=== PATIENT | male | born 1990 | race American Indian/Alaskan Native ===

== ENCOUNTER 2016-12-23 16:54 | Emergency (ER) | payer SELFPAY ==
[2016-12-23 17:20] VITALS: BP 114/76
[2016-12-23 17:56] LABS: Bilirubin,Urine NEG (Negative); Blood,Urine NEG (Negative); Ketones,Urine NEG (Negative); Leukocyte Esterase,Urine TR (Negative); Mucus,Urine FEW /HPF; Nitrite,Urine NEG (Negative)
--- NOTE | 2016-12-23 21:10 | Emergency Department Report ---
ED Male HPI - General Chief complaint: Urogenital-Male Stated complaint: BURNING WITH URINATION Time Seen by Provider: 12/23/16 20:27 Source: patient Mode of arrival: Ambulatory Limitations: No Limitations - History of Present Illness Initial comments: penile itching and dysuria x 2 weeks tx 2 months ago by urgent care for uti symptoms persist , pt advises last contact 1 month ago however has had symptoms since last contact symptoms today include urinary urgency frequency and dysuria , pt denies penile discharge does endorse" It feels funny on the inside" MD Complaint: dysuria Onset/Timin -: month(s) Location: penis Radiation: none Severity scale (0 -10): 3 Quality: burning Consistency: intermittent Improves with: none Worsens with: urination dysuria. denies: discharge, swelling, mass, urinary retention, blood in urine, fever, nausea/vomiting, incontinence - Related Data Sexually active: Yes Previous Rx's Medication Instructions Recorded Last Taken Type Doxycycline [Vibramycin CAP] 100 mg PO Q12HR #20 capsule 12/23/16 Unknown Rx Allergies Allergy/AdvReac Type Severity Reaction Status Date / Time oranges Allergy Rash Uncoded 12/23/16 17:15 ED Review of Systems ROS: Stated complaint: BURNING WITH URINATION Other details as noted in HPI Constitutional: denies: chills, fever Eyes: denies: eye pain, eye discharge, vision change ENT: denies: ear pain, throat pain Respiratory: denies: cough, shortness of breath, wheezing Cardiovascular: denies: chest pain, palpitations Endocrine: no symptoms reported Gastrointestinal: denies: abdominal pain, nausea, diarrhea Genitourinary: urgency, dysuria, frequency. denies: hematuria, discharge, testicular pain, testicular mass Musculoskeletal: denies: back pain, joint swelling, arthralgia Skin: denies: rash, lesions Neurological: denies: headache, weakness, paresthesias Psychiatric: denies: anxiety, depression Hematological/Lymphatic: denies: easy bleeding, easy bruising ED Past Medical Hx - Past Medical History Previous Medical History?: No - Surgical History Additional Surgical History: 5th finger - Social History Smoking Status: Never Smoker Substance Use Type: None - Medications Home Medications: Home Medications Medication Instructions Recorded Confirmed Last Taken Type Doxycycline [Vibramycin CAP] 100 mg PO Q12HR #20 capsule 12/23/16 Unknown Rx ED Physical Exam - General Limitations: No Limitations General appearance: alert, in no apparent distress - Head Head exam: Present: atraumatic, normocephalic - Eye Eye exam: Present: normal appearance - ENT ENT exam: Present: mucous membranes moist - Neck Neck exam: Present: normal inspection - Respiratory Respiratory exam: Present: normal lung sounds bilaterally. Absent: respiratory distress - Cardiovascular Cardiovascular Exam: Present: regular rate, normal rhythm. Absent: systolic murmur, diastolic murmur, rubs, gallop - GI/Abdominal GI/Abdominal exam: Present: soft, normal bowel sounds - Rectal Rectal exam: Present: deferred - exam: Present: circumcision. Absent: testicular tenderness, urethral discharge, scrotal swelling, vertical testicular lie External exam: Absent: normal external exam - Extremities Exam Extremities exam: Present: normal inspection - Back Exam Back exam: Present: normal inspection - Neurological Exam Neurological exam: Present: alert, oriented X3 - Psychiatric Psychiatric exam: Present: normal affect, normal mood - Skin Skin exam: Present: warm, dry, intact, normal color. Absent: rash ED Course Vital Signs 12/23/16 17:15 Temperature 97.9 F Pulse Rate 63 Blood Pressure 114/76 O2 Sat by Pulse 100 Oximetry ED Medical Decision Making - Medical Decision Making penile itching and dysuria x 2 weeks tx 2 months ago by urgent care for uti symptoms persist , pt advises last contact 1 month ago however has had symptoms since last contact symptoms today include urinary urgency frequency and dysuria , pt denies penile discharge does endorse" It feels funny on the inside" plan tx for std exposure pt will follow up with health department for HIV Screening and follow up pt verbalized agreement and understanding of same. Critical care attestation.: If time is entered above; I have spent that time in minutes in the direct care of this critically ill patient, excluding procedure time. ED Disposition Clinical Impression: STD exposure Disposition: DC-01 TO HOME OR SELFCARE Is pt being admited?: No Does the pt Need Aspirin: No Condition: Good Instructions: Sexually Transmitted Diseases (ED) Prescriptions: Doxycycline [Vibramycin CAP] 100 mg PO Q12HR #20 capsule Referrals: PRIMARY CARE, [Primary Care Provider] - 3-5 Days Forms: Work/School Release Form(ED) Time of Disposition: 21:15
[2016-12-23] MEDS ORDERED: XYLOCAINE 1% MPF 5 mL INFILTRATI ONE (21:13)
[2016-12-23] MEDS ORDERED: ROCEPHIN IM ONE (21:13)
[2016-12-23] MEDS ORDERED: ZITHROMAX PO ONE (21:13)
== END 2016-12-23 21:40 | disposition home or self-care (01) ==
LOC: ED 16:54
DX: R30.0 Dysuria (principal); Z20.2 Contact with and (suspected) exposure to infections with a predominantly sexual mode of transmission
CPT/HCPCS: 81001; 87591; 96372; 99283; J0696

== ENCOUNTER 2018-08-25 14:40 | Emergency (ER) | payer OTHER ==
--- NOTE | 2018-08-25 16:31 | Emergency Department Report ---
Eye Injury/Foreign Body - HPI Duration: 3 Days Eye Location: Left Severity: Mild Tetanus Status: Up to Date Eye Symptoms: Eye Pain: No, Blurred Vision: No, Eye Redness: Yes, Grinding/Hammering Metal: No, Used Eye Protection: No, Contact Lens Use: No, Recalls Injury: No, Photophobia: No Other History: 27-year-old -[place] male presents to the emergency room for redness and swelling to left eye for 3 days. Patient denies any itchiness denies any pain does admit to waking up with crusty eyes. 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 Patient reports he sees [facility] yesterday which she said it helped but the came back. Patient does smoke weed. Patient does not have a primary care provider. ED Review of Systems ROS: Stated complaint: LEFT EYE SWOLLEN Other details as noted in HPI Comment: All other systems reviewed and negative Constitutional: denies: chills, fever ENT: other (left eye redness no pain) Respiratory: denies: cough, shortness of breath, wheezing Cardiovascular: denies: chest pain, palpitations Endocrine: no symptoms reported Gastrointestinal: denies: abdominal pain, nausea, diarrhea Genitourinary: denies: urgency, dysuria Musculoskeletal: denies: back pain, joint swelling, arthralgia Skin: denies: rash, lesions Neurological: denies: headache, weakness, paresthesias Psychiatric: denies: anxiety, depression Hematological/Lymphatic: denies: easy bleeding, easy bruising ED Past Medical Hx - Past Medical History Hx Asthma: Yes - Surgical History Additional Surgical History: 5th finger - Social History Smoking Status: Never Smoker Substance Use Type: None - Medications Home Medications: Home Medications Medication Instructions Recorded Confirmed Last Taken Type DOXYCYCLINE Hyclate [Vibramycin 100 mg PO Q12HR #20 capsule 12/23/16 Unknown Rx CAP] Erythromycin [Erythromycin Ophth 1 applic OP QID #1 tube 08/25/18 Unknown Rx Oint] Ketotifen Fumarate [Zaditor] 1 drop OP BID #1 bottle 08/25/18 Unknown Rx Eye Injury Exam - Exam General: Vital signs noted. No distress. Alert and acting appropriately. Left sclera erythematous non-edematous. Conjunctivae erythematous Cardiac: Regular rate and rhythm Lungs clear to auscultation bilateral Skin no rashes lesions Psych stable mood ED Medical Decision Making - Medical Decision Making Patient has been evaluated for this provider in fast track. Patient has no eye pain or any redness no eye swelling. We'll try placing patient on erythromycin, ointment in a Mast cell stabilizer such as at [facility] Critical care attestation.: If time is entered above; I have spent that time in minutes in the direct care of this critically ill patient, excluding procedure time. ED Disposition Clinical Impression: Redness of eye, left Disposition: DC-01 TO HOME OR SELFCARE Is pt being admited?: No Does the pt Need Aspirin: No Condition: Stable Instructions: Conjunctivitis (ED) Additional Instructions: Use medications as prescribed. Follow up with the primary care provider symptoms persist or gets worse. Prescriptions: Erythromycin [Erythromycin Ophth Oint] 1 applic OP QID #1 tube Ketotifen Fumarate [Zaditor] 1 drop OP BID #1 bottle Referrals: [facility] [Outside] - 3-[address] [facility] [Outside] - 3-5 Days
[2018-08-25 16:35] VITALS: BP 114/71
== END 2018-08-25 17:12 | disposition home or self-care (01) ==
LOC: ED 14:40
DX: H57.89 Other specified disorders of eye and adnexa (principal); J45.909 Unspecified asthma, uncomplicated; Z79.899 Other long term (current) drug therapy; Z91.018 Allergy to other foods
CPT/HCPCS: 99282